=== PATIENT | male | born 1935 | race African-American/Black ===

== ENCOUNTER 2021-06-04 10:59 | Emergency (ER) | payer BC, SELFPAY ==
[2021-06-04 11:08] VITALS: BP 200/93; PULSE 72; RESP 18; O2SAT 98; BMI 24.3
[2021-06-04 11:15] VITALS: BP 200/93; PULSE 72; RESP 18; O2SAT 98
--- NOTE | 2021-06-04 11:22 | PC.NURSE ---
Bladder scanned pt, pt had >900mls in his bladder. Info to be relayed to Dr. Elena.
--- NOTE | 2021-06-04 11:26 | PC.NURSE ---
Rn aware bladder scan 999ML
--- NOTE | 2021-06-04 11:37 | PC.NURSE ---
zavala catheter placed per verbal order of Dr. Elena. 16f coude cath placed with no issues. RN instantly saw flash of urine. 1200 mls of urine visualized in the zavala bag.
--- NOTE | 2021-06-04 11:41 | ED.MALEGU ---
HPI - Male Genitourinary General Chief complaint: Urogenital-Male Stated complaint: prospate pain Time Seen by Provider: 06/04/21 11:11 Source: patient Limitations: no limitations History of Present Illness HPI Narrative: This is an 85-year-old male who is visiting from the [place] area and has a history of enlarged prostate, status post a prostate procedure years ago. The patient has had prior urinary retention. He began to have discomfort consistent with urinary retention at about 02:00 o'clock in the morning, has not urinated since then. Denies any fever, nausea vomiting, low back pain, hematuria. He is on Eliquis. Plans to return to [place] in 2 days, is Related Data Allergies Allergy/AdvReac Type Severity Reaction Status Date / Time No Known Allergies Allergy Verified 06/04/21 11:40 Review of Systems Review of Systems: Yes all other systems are reviewed and are negative Constitutional: Constitutional: Reports as per HPI and Denies fever(s) Eyes: Eyes: Reports as per HPI and Reports no additional eye complaints ENT: Reports system reviewed and no additional complaints, except as documented, Reports as per HPI, Denies nasal congestion, Denies nasal discharge and Denies sore throat Cardiovascular: Cardiovascular: Reports as per HPI, Denies chest pain and Denies dyspnea Respiratory: Respiratory: Reports as per HPI, Denies cough and Denies dyspnea Gastrointestinal: Gastrointestinal: Reports as per HPI, Reports abdominal pain, Denies diarrhea and Denies vomiting Genitourinary: Genitourinary: Reports as per HPI, Denies hematuria, Reports dysuria and Reports other (Can not urinate) Musculoskeletal: Musculoskeletal: Reports no additional musculoskeletal complaints and Denies numbness Integumentary/Breasts: Skin/Breast: Reports as per HPI and Denies rash Neurologic: Reports as per HPI, Denies Abnormal speech present, Denies focal weakness and Denies numbness Psychiatric: Psychiatric: Reports no additional psychiatric complaints and Reports as per HPI Endocrine: Endocrine: Reports no additional endocrine complaints and Reports as per HPI Hematologic/Lymphatic: Hematologic/Lymphatic: Reports no additional hematologic/lymphatic complaints, Reports as per HPI and Reports other (No peripheral edema) [facility] Social History Social History Advance Directives: No Advance Directives Information Provided: No Physical Exam Vital Signs: Vital Signs: Last Vital Signs Pulse 72 06/04/21 11:15 Resp 18 03/05/22 11:15 BP 200/93 H 06/04/21 11:15 Pulse Ox 98 06/04/21 11:15 BMI result Body Mass Index 24.3 Const: General: no acute distress and alert Orientation/consciousness: patient oriented x3 HENMT: Head: Yes normal to inspection Mouth: moist mucous membranes Eyes: General: appearance normal, both eyes and all related structures Resp: Effort & Inspection: normal respiratory effort Auscultation: clear to auscultation bilaterally Cardio: Rate: regular rate Rhythm: regular rhythm Heart sounds: S1 normal heart sound present and S2 normal heart sound present GI: Other: Initially distended, improved after placement Muro catheter Palpation (GI): Soft to palpation, nontender and no guarding : Male General Exam: Yes normal external exam Penis: normal penis Scrotum: scrotum normal Skin: Other: Warm and dry Neuro: General: patient oriented x3 Speech: No Abnormal speech present Psych: Speech and movement: Clear speech present Affect: normal affect MDM - Male Genitourinary MDM Narrative Medical decision making narrative: Patient with history of prostate enlargement, urinary retention, has had acute urinary retention since early this morning. Patient over 1000 mL out after the Muro catheter is placed any felt much better. Urine analysis does not show any signs of infection. Leg bag has been placed the patient is safe to follow up with his urologist back home Lab Data Attestation: I reviewed the patient's lab results. Labs: Lab Results 06/04/21 Range/Units 12:23 Urine Color YELLOW Urine Appearance HAZY Urine pH 6.0 (5.0-8.0) Ur Specific [place] 1.015 (1.005-1.025) Urine Protein NEG (NEG-TRACE) MG/DL Urine Glucose (UA) NEG (NEG) MG/DL Urine Ketones NEG (NEG) MG/DL Urine Blood 1+ H (NEG) Urine Nitrite NEG (NEG) Ur Leukocyte Esterase NEG (NEG) Urine RBC 5-9 H (0) /HPF Urine WBC 0 (0-4) /HPF Ur Squamous Epith Cells NONE /LPF Urine Bacteria NONE /LPF Discharge Plan Discharge Clinical Impression: Acute urinary retention Patient Disposition: Home, Self-Care Instructions: Urinary Retention in Men (ED), Muro Catheter Placement and Care (ED) Additional Instructions: Follow-up with your urologist back in [place] in the coming week. Empty the leg bag regularly and use caution while driving with a leg bag on. Try to keep it on your left leg so it does not interfere with driving. Return for any new or worsened symptoms. Drink plenty of water.
[2021-06-04 12:33] LABS: Appearance Urine HAZY; Color Urine YELLOW; Glucose Urine UA NEG (NEG); Leukocyte Esterase Urine NEG (NEG); Nitrite Urine NEG (NEG); Specific Gravity - Urine 1.015 (1.005-1.025); UACC Culture Trigger NO; Urine Blood 1+ (NEG); Urine Ketones NEG (NEG); Urine Protein NEG (NEG-TRACE)
[2021-06-04 12:45] LABS: UACC CULT YES; WBC Urine 0 /HPF (0-4)
== END 2021-06-04 13:38 | disposition home or self-care (01) ==
PROVIDERS: Emergency Provider Emergency Medicine
DX: N40.1 Benign prostatic hyperplasia with lower urinary tract symptoms (principal); R33.8 Other retention of urine; Z79.01 Long term (current) use of anticoagulants; E11.9 Type 2 diabetes mellitus without complications
CPT/HCPCS: 51702; 81001; 99284; 99285

== ENCOUNTER 2021-06-05 05:03 | Emergency (ER) | payer BC, SELFPAY ==
[2021-06-05 05:10] VITALS: BP 154/71; PULSE 60; RESP 16; TEMP 36.9; O2SAT 98; BMI 24.3
--- NOTE | 2021-06-05 05:38 | ED.MALEGU ---
HPI - Male Genitourinary General Chief complaint: Urogenital-Male Stated complaint: ?Catheter issue Time Seen by Provider: 06/05/21 05:07 Source: patient Mode of arrival: ambulatory History of Present Illness HPI Narrative: 85-year-old male returns after he was seen yesterday for urinary retention and had a catheter placed. Patient now presents could with concerns regarding the absence of urine within the catheter bag an also that there is urine leaking around the catheter. Related Data Allergies Allergy/AdvReac Type Severity Reaction Status Date / Time No Known Allergies Allergy Verified 06/04/21 11:40 Review of Systems Review of Systems: Pertinent positives and negatives as stated in HPI 10 point review of systems otherwise negative. PMFSH Past Medical History Source: nursing notes reviewed Medical History Diabetes Social History Social History Advance Directives: No Physical Exam Vital Signs: Vital Signs: Last Vital Signs Temp 98.4 F 06/05/21 05:10 Pulse 60 06/05/21 05:10 Resp 16 06/05/21 05:10 BP 154/71 H 06/05/21 05:10 Pulse Ox 98 06/05/21 05:10 BMI result Body Mass Index 24.3 VITAL SIGNS: Reviewed. GENERAL: Well developed, well nourished, in no acute distress. HEAD: Normocephalic/atraumatic EYES: PERRLA, EOMI LUNGS: Normal breath sounds. No adventitious sounds or accessory muscle use. SpO2<98> CARDIOVASCULAR: Regular rate and rhythm without noted murmurs ABDOMEN: Soft, non-tender, non-distended with bowel sounds. : Catheter place with noted clear yellow urine in the tubing, but no urine within the leg bag. On review of the balloon size it is noted to be able to hold 30 cc. NEUROLOGIC: Alert and oriented x 4. Strength and sensation to light touch were grossly intact x 4. Course Course Course Narrative: 85-year-old male who presents with concerns regarding adequate drainage of the urine catheter and also leakage around the catheter. Bladder scan demonstrates 228 cc urine and on visualization there is urine within the tubing, nursing confirmed that in fact there is only 10 cc within the catheter balloon and this was corrected to the 30 cc capacity. In addition, it was noted that the drainage plugged on the leg bag had been opened and was likely leaking. At this time patient is discharged home in stable chin with the correct amount fluid within the balloon as well as closure on the lay bag so that urine can be adequately collected. Discharge Plan Discharge Clinical Impression: Complication of Muro catheter, Urinary retention Patient Disposition: Home, Self-Care Instructions: Urinary Retention in Men (ED), Muro Catheter Placement and Care (ED) Additional Instructions: Follow-up with your urologist at home. Return to the ER for worsening symptoms.
== END 2021-06-05 06:09 | disposition home or self-care (01) ==
PROVIDERS: Emergency Provider Student in an Organized Health Care Education/Training Program
DX: R33.9 Retention of urine, unspecified (principal); T83.098A Other mechanical complication of other urinary catheter, initial encounter; Y73.8 Miscellaneous gastroenterology and urology devices associated with adverse incidents, not elsewhere classified; Y92.9 Unspecified place or not applicable; Z79.899 Other long term (current) drug therapy
CPT/HCPCS: 51798; 99283; 99284